=== PATIENT | female | born 1985 | race Caucasian/White ===

== ENCOUNTER 2018-04-25 12:08 | Emergency (ER) | payer SELFPAY ==
[~2018-04-25] VITALS: Ht 157.5 cm; Wt 90.7 kg
[2018-04-25] MEDS ORDERED: LISINOPRIL10 MG PO (12:17)
[2018-04-25] MEDS ORDERED: MONO-LINYAH1 EACH PO (12:17)
[2018-04-25] MEDS ORDERED: RANITIDINE HCL150 MG PO (12:17)
== END 2018-04-25 12:22 | disposition home or self-care (01) ==
LOC: ED 12:08
DX: R22.0 Localized swelling, mass and lump, head (principal); K08.89 Other specified disorders of teeth and supporting structures

== ENCOUNTER 2018-11-24 15:26 | Emergency (ER) | payer OTHER ==
[~2018-11-24] VITALS: Ht 157.5 cm; Wt 106.6 kg
[~2018-11-24 15:26] MED LIST: LISINOPRIL10 MG PO; MONO-LINYAH1 EACH PO; RANITIDINE HCL150 MG PO
[2018-11-24] MEDS ORDERED: PENICILLIN V P500 MG PO (15:53)
== END 2018-11-24 16:17 | disposition home or self-care (01) ==
LOC: ED 15:26
DX: K08.89 Other specified disorders of teeth and supporting structures (principal); I10 Essential (primary) hypertension; J45.909 Unspecified asthma, uncomplicated; K21.9 Gastro-esophageal reflux disease without esophagitis; F17.200 Nicotine dependence, unspecified, uncomplicated; Z79.899 Other long term (current) drug therapy
CPT/HCPCS: 96372; 99282-25; 99406; J2510

== ENCOUNTER 2019-03-22 00:02 | Inpatient (IN) | payer OTHER ==
[~2019-03-22] VITALS: Ht 160 cm; Wt 125.0 kg
[~2019-03-22 00:02] MED LIST changes: +PENICILLIN V P500 MG PO
[2019-03-22] MEDS ORDERED: PRENATAL VITAM1 EACH PO (01:41)
--- NOTE | 2019-03-22 10:01 | PR ---
[facility] [address] [facility] [place], [place] [address] Signed Progress Notes IP Datetime Report Generated by CPN: 03/22/2019 10:01 PROGRESS NOTES: [id number] Impression: Normal progression of labor Plan: Continue present management; Induction; Anticipate Vaginal Delivery VITAL SIGNS: [id number] Vital Signs: Reviewed; Within Normal Limits EXAM: [id number] Dilatation: 3.0 Effacement: 50 Station: -3 MEMBRANES: [id number] Membrane Status: Intact Comments: Cytotec x3, with only slight change. Tolerating contractions well. Will continue monitoring, have patient walk a little to see if can get head lower. Fetus A: [id number] FHR Baseline: 140 Variability: Moderate 6-25bpm Accelerations: 15X15 Fetus B: [id number] Signing Physician: Marsha Sharma MD Copies: ~ *Electronically Signed* 03/22/19 1001 MARSHA SHARAM MD PATIENT NAME: MEIR OLMOS PROGRESS NOTE DATE OF : 87 PHYSICIAN: MARSHA SHARMA MD RPT #: [id number] REPORT IS CONFIDENTIAL AND NOT TO BE RELEASED WITHOUT AUTHORIZATION
--- NOTE | 2019-03-22 12:51 | PR ---
[facility] [address] [facility] [place], [place] [address] Signed Progress Notes IP Datetime Report Generated by CPN: 03/22/2019 12:51 PROGRESS NOTES: [id number] Impression: Normal progression of labor Procedures: Artificial ROM; Scalp Electrode Plan: Continue present management; Anticipate Vaginal Delivery VITAL SIGNS: [id number] Vital Signs: Reviewed; Within Normal Limits EXAM: [id number] Dilatation: 4.0 Effacement: 50 Station: -3 Uterine Contractions: every 3-4 minutes MEMBRANES: [id number] Membrane Status: Ruptured Amniotic Fluid Color: Clear ROM Note: AROM without difficulty and moderate amount clear fluid. Head well-applied to cervix Comments: Getting more uncomforrtable, will call for Epidural Fetus A: [id number] FHR Baseline: 140 Variability: Moderate 6-25bpm Accelerations: 15X15 Presentation: Vertex Fetus B: [id number] Signing Physician: Colt Sharma MD Copies: ~ *Electronically Signed* 03/22/19 1251 COLT SHARMA MD PATIENT NAME: LAURA OLMOSHER BBEA PROGRESS NOTE DATE OF : 87 PHYSICIAN: COLT SHARMA MD RPT #: [id number] REPORT IS CONFIDENTIAL AND NOT TO BE RELEASED WITHOUT AUTHORIZATION
--- NOTE | 2019-03-22 16:59 | PR ---
[facility] [address] [facility] [place], [place] [address] Signed Progress Notes IP Datetime Report Generated by CPDonita: 03/22/2019 16:59 PROGRESS NOTES: [id number] Impression: Normal progression of labor Procedures: Artificial ROM; Scalp Electrode Plan: Continue present management; Anticipate Vaginal Delivery VITAL SIGNS: [id number] Vital Signs: Reviewed; Within Normal Limits EXAM: [id number] Dilatation: 9.0 Effacement: 90 Station: -1 Uterine Contractions: every 3-7 minutes MEMBRANES: [id number] Membrane Status: Ruptured Amniotic Fluid Color: Clear ROM Note: AROM without difficulty and moderate amount clear fluid. Head well-applied to cervix Comments: Occasional deep variable decels, but getting close to delivery. Position change and O2, seems to help. Will continue close observation Fetus A: [id number] FHR Baseline: 140 Variability: Moderate 6-25bpm Accelerations: 15X15 Decelerations: Variable; Prolonged Presentation: Vertex Fetus B: [id number] Signing Physician: Colt Sharma MD Copies: ~ *Electronically Signed* 03/22/19 1652 COLT SHARMA MD PATIENT NAME: MEIR OLMOS PROGRESS NOTE DATE OF : 87 PHYSICIAN: COLT SHARMA MD RPT #: [id number] REPORT IS CONFIDENTIAL AND NOT TO BE RELEASED WITHOUT AUTHORIZATION
--- NOTE | 2019-03-22 17:33 | PR ---
[facility] [address] [facility] [place], [place] [address] Signed Progress Notes IP Datetime Report Generated by CPN: 03/22/2019 17:33 PROGRESS NOTES: [id number] Impression: Normal progression of labor Procedures: Artificial ROM; Scalp Electrode Plan: Continue present management VITAL SIGNS: [id number] Vital Signs: Reviewed; Within Normal Limits EXAM: [id number] Dilatation: 10.0 Effacement: 100 Station: 0 Uterine Contractions: every 2-6 minutes MEMBRANES: [id number] Membrane Status: Ruptured Amniotic Fluid Color: Clear ROM Note: AROM without difficulty and moderate amount clear fluid. Head well-applied to cervix Comments: Comfortable with Epidural. Will start pushing Fetus A: [id number] FHR Baseline: 135 Variability: Moderate 6-25bpm Accelerations: 15X15 Decelerations: Variable Presentation: Vertex Fetus B: [id number] Signing Physician: Marsha Sharma MD Copies: ~ *Electronically Signed* 03/22/19 1733 MARSHA SHARMA MD PATIENT NAME: MEIR OLMOS PROGRESS NOTE DATE OF : 87 PHYSICIAN: MARSHA SHARMA MD RPT #: [id number] REPORT IS CONFIDENTIAL AND NOT TO BE RELEASED WITHOUT AUTHORIZATION
--- NOTE | 2019-03-22 18:21 | PR ---
[facility] [address] [place], [place] [address] Signed Progress Notes IP Datetime Report Generated by CPDonita: 03/22/2019 18:21 PROGRESS NOTES: [id number] Impression: Normal progression of labor Procedures: Artificial ROM; Scalp Electrode Plan: Continue present management VITAL SIGNS: [id number] Vital Signs: Reviewed; Within Normal Limits EXAM: [id number] Dilatation: 10.0 Effacement: 100 Station: -1 Uterine Contractions: everyb 2-5 minutes MEMBRANES: [id number] Membrane Status: Ruptured Amniotic Fluid Color: Clear ROM Note: AROM without difficulty and moderate amount clear fluid. Head well-applied to cervix Comments: Pushing again without decels, so will continue, with close monitoring. Discussed possible C/S for bradycardia , if continues, but hopefully will be able to get baby down and delivered. Fetus A: [id number] FHR Baseline: 120 Variability: Moderate 6-25bpm Accelerations: 15X15 Decelerations: Prolonged Presentation: Vertex Comments on Fetus A: Bradycardia for about 5 minutes, down to 60 bpm, responded to changing position. Fetus B: [id number] Signing Physician: Colt Sharma MD Copies: ~ *Electronically Signed* 03/22/19 182 COLT SHARMA MD PATIENT NAME: MEIR OLMOS PROGRESS NOTE DATE OF : 87 PHYSICIAN: COLT SHARMA MD RPT #: [id number] REPORT IS CONFIDENTIAL AND NOT TO BE RELEASED WITHOUT AUTHORIZATION
--- NOTE | 2019-03-23 13:16 | PR ---
[facility] [address] [facility] [place] [address] Signed PP Progress Notes Datetime Report Generated by CPN: 03/23/2019 13:16 SUBJECTIVE: [id number] Pain: Within normal limits Nausea/Vomiting: Denies Vital Signs: [id number] Vital Signs: Reviewed; Within Normal Limits Notable Details: PP Hgb/Hct = 11.6/35.9 EXAM: [id number] Abdomen/Uterus: Normal Lochia: Normal Extremities: Normal Exam Comments: obese IMPRESSION/PLAN/PROCEDURES: [id number] Impression: Normal progression Plan: Continue present management Procedures: None Progress Notes: Doing well, without complaint Signing Physician: Marsha Sharma MD Copies: ~ *Electronically Signed* 03/23/19 1316 MARSHA SHARMA MD PATIENT NAME: MEIR OLMOS PROGRESS NOTE DATE OF : 87 PHYSICIAN: MARSHA SHARMA MD RPT #: [id number] REPORT IS CONFIDENTIAL AND NOT TO BE RELEASED WITHOUT AUTHORIZATION
--- NOTE | 2019-03-24 08:05 | PR ---
[facility] [address] [facility] [place] [address] Signed PP Progress Notes Datetime Report Generated by CPN: 03/24/2019 08:05 SUBJECTIVE: [id number] Pain: Within normal limits Nausea/Vomiting: Denies Vital Signs: [id number] Vital Signs: Reviewed; Within Normal Limits Notable Details: PP Hgb/Hct = 11.6/35.9 EXAM: [id number] Abdomen/Uterus: Normal Lochia: Normal Extremities: Normal Exam Comments: obese IMPRESSION/PLAN/PROCEDURES: [id number] Impression: Normal progression Plan: Discharge Procedures: None Progress Notes: Doing well, ready to go home. Signing Physician: Marsha Sharma MD Copies: ~ *Electronically Signed* 03/24/19 0805 MARSHA SHARMA MD PATIENT NAME: MEIR OLMOS PROGRESS NOTE DATE OF : 87 PHYSICIAN: MARSHA SHARMA MD RPT #: [id number] REPORT IS CONFIDENTIAL AND NOT TO BE RELEASED WITHOUT AUTHORIZATION
== END 2019-03-24 18:20 | disposition home or self-care (01) | DRG 807 ==
LOC: FBC 00:02
PROVIDERS: ADMIT General Practice
PROC: 10E0XZZ Delivery of Products of Conception, External Approach (ICD-10-PCS; principal; 2019-03-22)
PROC: 0HQ9XZZ Repair Perineum Skin, External Approach (ICD-10-PCS; 2019-03-22)
PROC: 3E0P7VZ Introduction of Hormone into Female Reproductive, Via Natural or Artificial Opening (ICD-10-PCS; 2019-03-22)
PROC: 10907ZC Drainage of Amniotic Fluid, Therapeutic from Products of Conception, Via Natural or Artificial Opening (ICD-10-PCS; 2019-03-22)
PROC: 00HU33Z Insertion of Infusion Device into Spinal Canal, Percutaneous Approach (ICD-10-PCS; 2019-03-22)
PROC: 3E0R3BZ Introduction of Anesthetic Agent into Spinal Canal, Percutaneous Approach (ICD-10-PCS; 2019-03-22)
DX: O99.824 Streptococcus B carrier state complicating childbirth (principal); Z37.0 Single live birth; Z3A.39 39 weeks gestation of pregnancy; O99.334 Smoking (tobacco) complicating childbirth; F17.210 Nicotine dependence, cigarettes, uncomplicated; O76 Abnormality in fetal heart rate and rhythm complicating labor and delivery; O99.324 Drug use complicating childbirth; F12.90 Cannabis use, unspecified, uncomplicated; O70.0 First degree perineal laceration during delivery; Z86.19 Personal history of other infectious and parasitic diseases
CPT/HCPCS: 01960; 36415; 85027; A9270; J2405; J2540; J2795; J3010; J7060; J7121

== ENCOUNTER 2023-10-31 03:16 | Emergency (ER) | payer SELFPAY ==
[~2023-10-31] VITALS: Ht 160 cm; Wt 119.3 kg
--- OUTSIDE RECORDS SUMMARY | 2023-10-31 03:23 | XMS ---
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 EAisha VISIT COUNT (12 MO.) 2 [facility] TOTAL 2 NOTE: Visits indicate total known visits. ED/UCC VISIT TRACKING (12 MO.) 10/31/2023 03:17 [facility] [place] TYPE: Emergency COMPLAINT: - RT SWOLLEN HAND 10/26/2023 22:14 [facility] [place] TYPE: Emergency COMPLAINT: - SCIATICA PAIN DIAGNOSES: - Bee allergy status - Essential (primary) hypertension - Intervertebral disc disorders with radiculopathy, lumbar region - Low back pain, unspecified - Nicotine dependence, unspecified, uncomplicated INPATIENT VISIT TRACKING (12 MO.) No inpatient visits to display in this time frame [email or web address]
[2023-10-31] MEDS ORDERED: LACTATED RINGER'S 1,000 ML IV ONE (04:00)
[2023-10-31 04:01] LABS: HEMOGLOBIN 10.3 g/dL (12.0-18.0)
[2023-10-31 04:04] LABS: BASOPHILS 0.4 % (0-2); EOSINOPHILS 0.5 % (0-6); HEMATOCRIT 31.1 % (35.0-50.0); LYMPHOCYTES 19.2 % (24-44); MCH 29.2 (27-36); MCHC 33.2 g/dl (30-36); MCV 87.8 fl (81-99); MONOCYTES 8.3 % (0-12); NEUTROPHILS 71.6 % (39-80); PLATELET COUNT 197 K/uL (140-440); RBC 3.55 M/ul (4.3-5.7); RDW 15.2 (10.5-15.0)
[2023-10-31 04:24] LABS: ALBUMIN 2.8 g/dL (3.4-5.0); ALBUMIN/GLOBULIN RATIO 0.64 (1.1-2.4); ANION GAP 13.4 (7-21); BILIRUBIN, TOTAL 0.3 ng/dL (0.2-1.0); BUN/CREATININE RATIO 20.63 (6.0-28.6); CALCIUM 8.7 mg/dL (8.5-10.1); CREATININE, SERUM 0.63 mg/dL (0.55-1.02); POTASSIUM 3.4 mmol/L (3.5-5.1); PROTEIN, TOTAL 7.2 g/dL (6.4-8.2)
[2023-10-31 05:04] VITALS: BP 141/83
== END 2023-10-31 05:12 | disposition home or self-care (01) ==
LOC: ED 03:16
PROVIDERS: Internal Medicine
DX: T63.481A Toxic effect of venom of other arthropod, accidental (unintentional), initial encounter (principal); T78.40XA Allergy, unspecified, initial encounter; I10 Essential (primary) hypertension; F17.200 Nicotine dependence, unspecified, uncomplicated; Z91.030 Bee allergy status
CPT/HCPCS: 36415; 80053; 82553; 84550; 85025; 86140; 96360; 99283-25; J7121